=== PATIENT | female | born 1990 | race Caucasian/White ===

== ENCOUNTER 2018-02-06 02:00 | Emergency (ER) | payer OTHER ==
[~2018-02-06] VITALS: Ht 147.3 cm; Wt 53.1 kg
[2018-02-06 02:05] VITALS: BP 119/86
--- NOTE | 2018-02-06 02:05 | NUR ---
PATIENT PRESENTS TO ED WITH GENERALIZED BODY ACHES WITH PAIN FOCUSED IN JOINTS, 8/10 X3 WEEKS; PT WAKING IN AM WITH SWOLLEN HANDS AND FEET, INCREASED HAIR LOSS AND INCREASED MEMORY LOSS X3 WEEKS. DENIES N/V/D; SKIN IS PINK/WARM/DRY; AAOX4 WITH EVEN AND STEADY GAIT; LUNGS CLEAR BL; HR EVEN AND REGULAR; PT DENIES ANY FEVER, CP, SOB, OR COUGH AT THIS TIME; PATIENT STATES PAIN OF 8/10 AT THIS TIME; VSS; PATIENT POSITIONED FOR COMFORT; HOB ELEVATED; BEDRAILS UP X1; BED DOWN. ER MD MADE AWARE OF PT STATUS. CONTINUE TO MONITOR.
--- NOTE | 2018-02-06 02:05 | NUR ---
PT AMBULATED TO BED 1
[2018-02-06] MEDS ORDERED: KETOROLAC 60 MG/2 ML VIAL IM ONE (02:45)
[2018-02-06 03:12] VITALS: BP 119/86
--- NOTE | 2018-02-06 03:12 | NUR ---
Patient discharged with v/s stable with decreased pain. Written and verbal after care instructions given and explained. Patient alert, oriented and verbalized understanding of instructions. Ambulatory with steady gait. All questions addressed prior to discharge. ID band removed. Patient advised to follow up with PMD. Rx of MOTRIN given. Patient educated on indication of medication including possible reaction and side effects. Opportunity to ask questions provided and answered.
== END 2018-02-06 03:12 | disposition home or self-care (01) ==
LOC: MED 02:00
DX: M25.50 Pain in unspecified joint (principal); F17.210 Nicotine dependence, cigarettes, uncomplicated
CPT/HCPCS: 96372; 99283; J1885; 81002; 81025

== ENCOUNTER 2019-01-27 07:23 | Emergency (ER) | payer OTHER ==
[~2019-01-27] VITALS: Ht 147.3 cm; Wt 61.2 kg
[2019-01-27 07:26] VITALS: BP 143/80
[2019-01-27 07:30] VITALS: BP 143/80
--- NOTE | 2019-01-27 07:30 | NUR ---
BIB SISTER. PT AAO X4 C/O HEADACHE (MIGRAINE) SINCE MIDNIGHT AND L BREAST THROBBING PAIN OF 8/10, TENDER TO TOUCH SINCE JUNE. PT DENIES ANY NIPPLE DISCHARGE. PT STATES MILD SWELLING TO L BREAST. NAUSEA, VOMITING AND DIARRHEA X TODAY. PT DENIES BLOOD IN VOMIT AND STOOL. PT TOOK EXCEDRIN FOR MIGRAINE AT 0300 AM WITH MILD RELIEF. PT DENIES DIFFICULTY BREATHING, DIZZINESS. HOB UP. BED SIDE RAILS UP X1. ON LOW BED POSITION, LOCKED. ER MADE AWARE OF PT STATUS.
--- NOTE | 2019-01-27 07:56 | NUR ---
DR EDWARDS AT BEDSIDE FOR PT EVALUATION.
[2019-01-27] MEDS ORDERED: METOCLOPRAMIDE 10 MG/2 ML INJ VIAL IVP ONE (08:00)
[2019-01-27] MEDS ORDERED: NACL 0.9% 1,000 ML IV ONE (08:00)
[2019-01-27] MEDS ORDERED: diphenhydrAMINE 50 MG/ML VIAL IVP ONE (08:00)
--- NOTE | 2019-01-27 08:05 | NUR ---
PT REFUSED MEDICATIONS PRESCRIBED. PT TEACHING OF THE BENEFITS OF MEDICATIONS X3. PT VERBALIZED UNDERSTANDING, BUT STILL REFUSED. DR NOTIFIED.
--- NOTE | 2019-01-27 08:10 | NUR ---
PATIENT ELOPED FROM FACILITY. PATIENT WAS EVALUATED BY THE DOCTOR AND PT LEFT WITHOUT DISCHARGE INSTRUCTIONS. NOTIFIED.
== END 2019-01-27 08:10 | disposition left against medical advice (07) ==
LOC: MED 07:23
DX: R51 Headache (principal); R11.2 Nausea with vomiting, unspecified; R19.7 Diarrhea, unspecified; Z98.890 Other specified postprocedural states
CPT/HCPCS: 81002; 81025; 99281; 99282; J1200; J2765

== ENCOUNTER 2019-02-24 08:40 | Emergency (ER) | payer OTHER ==
[~2019-02-24] VITALS: Ht 147.3 cm; Wt 64.9 kg
--- NOTE | 2019-02-24 08:50 | NUR ---
PT AMB TO BED 9, STEADY GAIT
[2019-02-24 08:52] VITALS: BP 127/82
--- NOTE | 2019-02-24 08:52 | NUR ---
28 Y FEMALE BIB SELF C/O POSSIBLE ALLERGIC REACTION TO WHEAT IN BEER. PT STATES SHE STARTED TAKING WELLBUTRIN 2 WEEKS AGO AND HAD A REACTION BUT STARTED TAKING PREDNISONE AND NO FURTHER COMPLICATIONS, THEN ON THURSDAY SHE HAD BEER WITH WHEAT IN IT AND HAD SWOLLEN FACE AND THEN LAST NIGHT SHE HAD ANOTHER BEER AND THIS AM HER THROAT FEELS TIGHT AND HER EYES SWOLLEN. PT THINKS ITS THE BEER VS THE WELLBUTRIN. RASH AND HIVES TO INSIDE OF INNER THIGHS AND LEFT SIDE OF ABDOMEN. VSS AT THIS TIME. PT AA0X4, SPEAKING IN FULL AND COMPLETE SENTENCES. BED IS DOWN, LOCKED, BED RAIL X 1, ERMD TO SEE PT. MED HX: DEPRESSION
--- NOTE | 2019-02-24 08:58 | NUR ---
DR KATHLEEN AT BEDSIDE
[2019-02-24 09:12] VITALS: BP 126/80
--- NOTE | 2019-02-24 09:12 | NUR ---
Patient discharged with v/s stable. Written and verbal after care instructions given and explained. Patient alert, oriented and verbalized understanding of instructions. Ambulatory with steady gait. All questions addressed prior to discharge. ID band removed. Patient advised to follow up with PMD. Rx of ZANTAC given. Patient educated on indication of medication including possible reaction and side effects. Opportunity to ask questions provided and answered. PT INSTRUCTED TO RETURN TO ER IF SYMTPOMS WORSEN, OR IF PT HAS DIFFICULTY BREATHING.
== END 2019-02-24 09:12 | disposition home or self-care (01) ==
LOC: MED 08:40
DX: L50.0 Allergic urticaria (principal); R03.0 Elevated blood-pressure reading, without diagnosis of hypertension
CPT/HCPCS: 99282

== ENCOUNTER 2019-06-07 11:46 | Emergency (ER) | payer OTHER ==
[~2019-06-07] VITALS: Ht 147.3 cm; Wt 69.5 kg
[2019-06-07 12:10] VITALS: BP 135/74
--- NOTE | 2019-06-07 12:17 | NUR ---
urine cup handed to pt for sample
--- NOTE | 2019-06-07 14:24 | NUR ---
pt bib self with c/o right flank pain with tenderness x 3 days. pt states having nausea since yesterday. denies any vomiting or diarrhea, fever or chills at this time. admits rolled off cough as well , landed on same side---no discoloration or increased warmth to affected side. no meds taken at home. pain radiates to rl rlq at abdomen. no difficulty in urinating. er md assessing pt at the bedside. will continue to monitor pt. hx---kidney stones, depression rx----none
--- NOTE | 2019-06-07 14:25 | NUR ---
DR. KATHLEEN BEDSIDE EVALUATING PT
--- NOTE | 2019-06-07 15:11 | NUR ---
pt fracisco renee trying establihing iv on the pt.
[2019-06-07 15:18] LABS: BASOPHILS % (AUTO) 0.6 % (0.0-2.0); EOSINOPHILS # (AUTO) 0.3 K/uL (0-0.4); EOSINOPHILS % (AUTO) 3.5 % (0.0-4.0); HEMATOCRIT 43.5 % (36-48); HEMOGLOBIN 14.7 g/dL (12.0-16.0); LYMPHOCYTES # (AUTO) 3.2 K/uL (2.5-16.5); MEAN CORPUSCULAR HEMOGLOBIN 31 pg (27-31); MEAN CORPUSCULAR HGB CONC 34 g/dL (33-37); MEAN CORPUSCULAR VOLUME 90.7 fL (80-94); MONOCYTES # (AUTO) 0.5 K/uL (0.8-1.0); MONOCYTES % (AUTO) 5.3 % (1.7-9.3); NEUTROPHILS # (AUTO) 4.6 K/uL (1.8-7.7); NEUTROPHILS % (AUTO) 53.6 % (42.2-75.2); PLATELET COUNT (AUTO) 202 K/uL (140-450); RED CELL DISTRIBUTION WIDTH 13.3 % (11.6-13.7); WHITE BLOOD COUNT (AUTO) 8.7 K/uL (4.8-10.8)
[2019-06-07] MEDS: KETOROLAC 30 MG/ML VIAL IVP ONE (15:22)
[2019-06-07] MEDS ORDERED: ONDANSETRON 4 MG/2 ML VIAL ONE (15:22)
[2019-06-07] MEDS ORDERED: KETOROLAC 30 MG/ML VIAL ONE (15:22)
[2019-06-07] MEDS: ONDANSETRON 4 MG/2 ML VIAL IVP ONE (15:23)
[2019-06-07] MEDS: NACL 0.9% 1,000 ML IV SCH (15:24)
[2019-06-07 15:33] LABS: APPEARANCE,URINE CLEAR (CLEAR); BILIRUBIN,URINE NEGATIVE (NEGATIVE); BLOOD, URINE NEGATIVE (NEGATIVE); COLOR,URINE YELLOW (YELLOW); LEUKOCYTE ESTERASE ,URINE NEGATIVE (NEGATIVE); NITRITE, URINE NEGATIVE (NEGATIVE); UGLUCOSE NEGATIVE (NEGATIVE)
[2019-06-07 15:45] LABS: ANION GAP 14.3 (8-16); CARBON DIOXIDE 26.8 mmol/L (21-32); CREATININE 0.7 mg/dL (0.6-1.3); POTASSIUM 4.1 mmol/L (3.5-5.1); TOTAL BILIRUBIN 0.2 mg/dL (0.0-1.0)
[2019-06-07 15:46] LABS: ALBUMIN 3.8 g/dL (3.4-5.0)
[2019-06-07 16:30] VITALS: BP 140/78
--- NOTE | 2019-06-07 16:30 | NUR ---
Patient discharged with v/s stable. Written and verbal after care instructions given and explained. Patient alert, oriented and verbalized understanding of instructions. Ambulatory with steady gait. All questions addressed prior to discharge. ID band removed. Patient advised to follow up with PMD. Rx of [place] 5mg-325mg, zofran odt 4mg given. Patient educated on indication of medication including possible reaction and side effects. Opportunity to ask questions provided and answered.
== END 2019-06-07 16:30 | disposition home or self-care (01) ==
LOC: MED 11:46
DX: N20.0 Calculus of kidney (principal); F32.9 Major depressive disorder, single episode, unspecified; Z87.442 Personal history of urinary calculi
CPT/HCPCS: 36415; 80053; 81003; 85025; 96374; 96375; 99283; J1885; J2405; J7030

== ENCOUNTER 2019-08-16 19:07 | Emergency (ER) | payer OTHER ==
[~2019-08-16] VITALS: Ht 149.9 cm; Wt 69.9 kg
[2019-08-16 19:13] VITALS: BP 140/79
--- NOTE | 2019-08-16 19:20 | NUR ---
JENIFFER EMT PERFORMING EKG.
--- NOTE | 2019-08-16 19:25 | NUR ---
PT AMBULATED TO LOBBY WITH STEADY GAIT.
--- NOTE | 2019-08-16 20:02 | NUR ---
PT WAS TAKEN TO BED 12 VIA WHEEL CHAIR
[2019-08-16 20:08] VITALS: BP 135/87
--- NOTE | 2019-08-16 20:08 | NUR ---
28 Y/O F, PRESENTS TO ED WITH COMPLAINTS OF CHEST PAIN AND SHORTNESS OF BREATH. PATIENT REPORTS HAVING ABNORMAL EKG READ FROM PCP AND ALSO PHYSICIAN FROM [facility]. EKG FROM PCP SHOWS SINUS [id number]. CURRENT HR-72, BP- 135/87, RR 18, SATURATION 97%. PAIN AND SHORTNESS OF BREATH FOR 5 HOURS TODAY, PAIN IN CHEST IS GENERALIZED IN UPPER CHEST AREA BUT WAITING IN THE LOBBY, THE PAIN INCREASED TO LEFT UPPER CHEST, RATES PAIN 8/10. REPORTS HX OF DEPRESSION, OFF MEDS NOW. SIDERAILS UP x1, WILL CONTINUE TO MONITOR.
[2019-08-16] MEDS ORDERED: KETOROLAC 30 MG/ML VIAL IM ONE (20:40)
== END 2019-08-16 21:26 | disposition home or self-care (01) ==
LOC: MED 19:07
DX: R07.89 Other chest pain (principal); F32.9 Major depressive disorder, single episode, unspecified
CPT/HCPCS: 71045; 93005; 96372; 99283; J1885

== ENCOUNTER 2019-09-25 16:00 | Emergency (ER) | payer OTHER ==
[~2019-09-25] VITALS: Ht 147.3 cm; Wt 68.0 kg
[2019-09-25 16:04] VITALS: BP 128/87
--- NOTE | 2019-09-25 16:10 | NUR ---
WAIT AT LOBBY.
--- NOTE | 2019-09-25 16:28 | NUR ---
PT AMBULATED TO ER BED 10
[2019-09-25] MEDS ORDERED: KETOROLAC 30 MG/ML VIAL IVP ONE (16:40)
[2019-09-25] MEDS ORDERED: NACL 0.9% 1,000 ML IV SCH (16:40)
[2019-09-25] MEDS ORDERED: MORPHINE SULFATE 4 MG/ML SYR IVP ONE ×2 (16:40→18:50)
[2019-09-25] MEDS ORDERED: ONDANSETRON 4 MG/2 ML VIAL IVP ONE ×2 (16:40→18:50)
[2019-09-25] MEDS ORDERED: NACL 0.9% 1,000 ML IV ONE (16:40)
[2019-09-25] MEDS ORDERED: GLYCOPYRROLATE 0.2 MG/ML VIAL IV ONE (17:10)
--- NOTE | 2019-09-25 17:10 | NUR ---
C/O EPIGASTRIC PAIN RADIATING TO RUQ 07/07 ACCOMPANIED BY N/V STARTING TODAY. ABDOMEN SOFT/FLAT/TENDER TO PALPATION IN RUQ. BOWEL SOUNDS PRESENT X4. LBM TODAY. PT DENIES FEVER/DIARRHEA. BED IN LOW POSITION, SIDE RAIL UP X1.
[2019-09-25 17:20] LABS: BASOPHILS % (AUTO) 0.3 % (0.0-2.0); EOSINOPHILS # (AUTO) 0.4 K/uL (0-0.4); EOSINOPHILS % (AUTO) 2.9 % (0.0-4.0); HEMOGLOBIN 13.9 g/dL (12.0-16.0); LYMPHOCYTES # (AUTO) 2.4 K/uL (2.5-16.5); LYMPHOCYTES % (AUTO) 18.8 % (20.5-51.1); MEAN CORPUSCULAR HEMOGLOBIN 30 pg (27-31); MEAN CORPUSCULAR HGB CONC 32 g/dL (33-37); MEAN CORPUSCULAR VOLUME 91.4 fL (80-94); MONOCYTES # (AUTO) 0.7 K/uL (0.8-1.0); MONOCYTES % (AUTO) 5.4 % (1.7-9.3); NEUTROPHILS # (AUTO) 9.2 K/uL (1.8-7.7); NEUTROPHILS % (AUTO) 72.6 % (42.2-75.2); PLATELET COUNT (AUTO) 248 K/uL (140-450); RED CELL DISTRIBUTION WIDTH 13.4 % (11.6-13.7); WHITE BLOOD COUNT (AUTO) 12.6 K/uL (4.8-10.8)
[2019-09-25 17:55] LABS: ALBUMIN 3.9 g/dL (3.4-5.0); ANION GAP 13.6 (8-16); CARBON DIOXIDE 25.4 mmol/L (21-32); CREATININE 0.6 mg/dL (0.6-1.3); TOTAL BILIRUBIN 0.3 mg/dL (0.0-1.0)
--- NOTE | 2019-09-25 18:00 | NUR ---
PT LEFT TO CT VIA WHEELCHAIR
[2019-09-25 18:05] LABS: APPEARANCE,URINE HAZY (CLEAR); BILIRUBIN,URINE NEGATIVE (NEGATIVE); BLOOD, URINE NEGATIVE (NEGATIVE); LEUKOCYTE ESTERASE ,URINE NEGATIVE (NEGATIVE); NITRITE, URINE NEGATIVE (NEGATIVE); PH,URINE 7.5 (5.0-9.0); UGLUCOSE NEGATIVE (NEGATIVE)
[2019-09-25 18:10] LABS: PROTHROMBIN TIME 9.3 secs (10.8-13.4)
[2019-09-25 18:19] LABS: COLOR,URINE DARK YELLOW (YELLOW)
[2019-09-25] MEDS ORDERED: PIPERACILLIN/TAZOBACTAM 3.375 GM in DEXTROSE 5% 50 ML IV ONE (18:30)
--- NOTE | 2019-09-25 18:49 | NUR ---
FAMILY TAKING THE PATIENTS BELONGINGS, LEAVING JUST THE PANTS, SLIPPERS, AND PHONE
--- NOTE | 2019-09-25 19:13 | NUR ---
RECEIVED REPORT FROM JOSE HUDSON.
[2019-09-25] MEDS ORDERED: PIPERACILLIN/TAZOBACTAM 3.375 GM VIAL IV ONE (19:34)
--- NOTE | 2019-09-25 20:37 | NUR ---
Dr. Srinivasan examining patient.
[2019-09-25 20:55] VITALS: BP 120/60
--- NOTE | 2019-09-25 20:55 | NUR ---
Patient discharged with v/s stable. Written and verbal after care instructions given and explained. Patient alert, oriented and verbalized understanding of instructions. Ambulatory with steady gait. All questions addressed prior to discharge. ID band removed. Patient advised to follow up with PMD. Rx of TRAMADOL; ZOFRAN; BENTYL given. Patient educated on indication of medication including possible reaction and side effects. Opportunity to ask questions provided and answered.
--- NOTE | 2019-10-03 09:22 | NUR ---
Late entry. Confirmed with RN that Zosyn IV completed at 2019.
== END 2019-09-25 20:55 | disposition home or self-care (01) ==
LOC: MED 16:00
DX: N20.9 Urinary calculus, unspecified (principal); R10.84 Generalized abdominal pain; Z98.890 Other specified postprocedural states
CPT/HCPCS: 36415; 74176; 76705; 80053; 81003; 81025; 82150; 82977; 83690; 84703; 85025; 85610; 96361; 96365; 96375; 96376; 99284; J1885; J2270; J2405; J2543; J3490; J7030; Q0092

== ENCOUNTER 2022-07-07 15:11 | Emergency (ER) | payer OTHER ==
[~2022-07-07] VITALS: Ht 149.9 cm; Wt 63.5 kg
[2022-07-07 15:39] VITALS: BP 136/72
--- NOTE | 2022-07-07 16:30 | NUR ---
C/O 06/07 RIGHT RIB PAIN, R HIP PAIN RADIATING TO RIGHT LEG & BOTH HANDS PAIN, ABRASION RIGHT BUTTOCK S/P FALL X LAST NIGHT. PMH: MIGRAINE
[2022-07-07] MEDS ORDERED: KETOROLAC 30 MG/ML VIAL IM ONE (17:05)
[2022-07-07] MEDS ORDERED: LID5T TP (18:23)
[2022-07-07] MEDS ORDERED: IBUP-2213 PO (18:24)
[2022-07-07] MEDS ORDERED: BACI1PAC6 TP (18:24)
--- NOTE | 2022-07-07 18:36 | NUR ---
Patient discharged with v/s stable. Written and verbal after care instructions given and explained. Patient alert, oriented and verbalized understanding of instructions. Ambulatory with steady gait. All questions addressed prior to discharge. ID band removed. Patient advised to follow up with PMD. Rx of Ibuprofen, Bacitracin, Lidocaine given. Patient educated on indication of medication including possible reaction and side effects. Opportunity to ask questions provided and answered.
== END 2022-07-07 18:36 | disposition home or self-care (01) ==
LOC: MED 15:11
DX: S70.01XA Contusion of right hip, initial encounter (principal); S60.410A Abrasion of right index finger, initial encounter; W18.30XA Fall on same level, unspecified, initial encounter; Y93.89 Activity, other specified; Y92.89 Other specified places as the place of occurrence of the external cause; Y99.8 Other external cause status
CPT/HCPCS: 73502; 81025; 96372; 99283; J1885

== ENCOUNTER 2023-08-25 05:21 | Emergency (ER) | payer OTHER ==
[~2023-08-25] VITALS: Ht 147.3 cm; Wt 67.6 kg
[~2023-08-25 05:21] MED LIST: BACI-418 TP; IBUP-2213 PO; LID5T TP
[2023-08-25 05:22] VITALS: BP 114/72; PULSE 63; RESP 15; TEMP 98.4; O2SAT 98
[2023-08-25] MEDS ORDERED: KETOROLAC 30 MG/ML VIAL IM ONE (07:05)
[2023-08-25] MEDS ORDERED: IBUP-2213 PO (07:18)
[2023-08-25 07:46] VITALS: BP 114/72; PULSE 63; RESP 15; TEMP 98.4; O2SAT 98
== END 2023-08-25 07:46 | disposition home or self-care (01) ==
LOC: MED 05:21
DX: R07.89 Other chest pain (principal); N64.4 Mastodynia; Z79.899 Other long term (current) drug therapy; Z79.1 Long term (current) use of non-steroidal anti-inflammatories (NSAID); Z79.2 Long term (current) use of antibiotics
CPT/HCPCS: 93005; 96372; 99283; J1885